=== PATIENT | male | born 1970 | race Caucasian/White ===

== ENCOUNTER 2018-05-25 16:51 | Inpatient (IN) | payer MEDICAID, OTHER ==
--- NOTE | 2018-05-25 17:31 | EDPHY ---
H & P Time Seen by Provider: 05/25/18 17:06 HPI/ROS: CHIEF COMPLAINT: "I just do not want to be here anymore" HISTORY OF PRESENT ILLNESS: Patient is a 48-year-old male who reports a history of schizophrenia and psych disease who presents emergency department with suicidal ideation and attempts to kill himself. The patient states that " I just don't want to be living anymore."Patient states that earlier this afternoon he just started to randomly take all of his various medications. He is not sure how many tablets of each medication he took. He denies any illicit drugs or alcohol. He denies any recent trauma. The patient was placed on a hold by PD. REVIEW OF SYSTEMS: 10 systems were reveiwed and are negative with the exception of the elements mentioned in the history of present illness. Past Medical/Surgical History: Includes schizophrenia, depression Social history: The patient denies drugs or alcohol Physical Exam: 36.9, 141/75, 84, 20, 97% on room air GENERAL: Mild acute distress, alert. HEENT: Eyes normal to inspection, normal pharynx, dry mucous membranes. NECK: Normal, supple. RESPIRATORY: Clear to auscultation bilaterally, no rales, rhonchi or wheezing. CVS: Regular rate and rhythm, no rubs, murmurs, or gallops. ABDOMEN: Soft, nontender, nondistended, no organomegaly. BACK: Normal to inspection, no CVA tenderness. SKIN: Normal color, no rash, warm, dry. No pallor. EXTREMITIES: No pedal edema, no calf tenderness, no Homans sign or cords, no joint swelling. NEURO/PSYCH: Alert and oriented to place, agitated, normal motor sensory exam. No obvious cranial nerve deficit. Intermittent tic (patient states this is baseline) Constitutional: Initial Vital Signs Temperature (C) 36.9 C 05/25/18 17:00 Heart Rate 84 05/25/18 17:00 Respiratory Rate 20 05/25/18 17:00 Blood Pressure 141/75 H 05/25/18 17:00 O2 Sat (%) 97 05/25/18 17:00 O2 Delivery Mode Room Air Allergies/Adverse Reactions: No Known Allergies Allergy (Unverified 05/25/18 16:58) Home Medications: Medication Instructions Recorded Amphetamine 05/25/18 Ingrezza 05/25/18 Neurontin 05/25/18 TRIHEXYPHENIDYL HCL 05/25/18 Wellbutrin 75mg (*) 05/25/18 Zofran 05/25/18 Zyprexa 05/25/18 Medical Decision Making ED Course/Re-evaluation: In the emergency department I met the patient on arrival. I took report from the paramedics. I discussed the plan with the patient. I answered all his questions. His medications were uploaded into the system. Please refer the nursing note. 1800: I discussed the case with the nursing staff. Please refer to their note. They entered in the number medications left his bottles. I rechecked the patient while here. He was stable. Patient was able to give a urine sample. Amphetamine and THC are non negative. Patient will be evaluated by Psychiatric Services. 2300: Patient is signed out to Dr. Beckham at change of shift. Patient is awaiting psychiatric evaluation. Differential Diagnosis: My differential includes but is not limited to depression, schizophrenia, psychosis, suicidal ideation, medication overdose, drug overdose, alcohol abuse - Data Points Laboratory Results: Laboratory Results 05/25/18 17:14 05/25/18 17:14 05/25/18 05/25/18 05/25/18 21:45 17:14 17:14 WBC 9.91 10^3/uL H 10^3/uL (3.80-9.50) RBC 4.60 10^6/uL 10^6/uL (4.40-6.38) Hgb 15.2 g/dL g/dL (13.7-17.5) Hct 40.8 % % (40.0-51.0) MCV 88.7 fL fL (81.5-99.8) MCH 33.0 pg pg (27.9-34.1) MCHC 37.3 g/dL H g/dL (32.4-36.7) RDW 11.9 % % (11.5-15.2) Plt Count 246 10^3/uL 10^3/uL (150-400) MPV 9.0 fL fL (8.7-11.7) Neut % (Auto) 78.7 % H % (39.3-74.2) Lymph % (Auto) 11.0 % L % (15.0-45.0) Terry % (Auto) 9.7 % % (4.5-13.0) Eos % (Auto) 0.0 % L % (0.6-7.6) Baso % (Auto) 0.1 % L % (0.3-1.7) Nucleat RBC Rel Count 0.0 % % (0.0-0.2) Absolute Neuts (auto) 7.80 10^3/uL H 10^3/uL (1.70-6.50) Absolute Lymphs (auto) 1.09 10^3/uL 10^3/uL (1.00-3.00) Absolute Monos (auto) 0.96 10^3/uL H 10^3/uL (0.30-0.80) Absolute Eos (auto) 0.00 10^3/uL L 10^3/uL (0.03-0.40) Absolute Basos (auto) 0.01 10^3/uL L 10^3/uL (0.02-0.10) Absolute Nucleated RBC 0.00 10^3/uL 10^3/uL (0-0.01) Immature Gran % 0.5 % % (0.0-1.1) Immature Gran # 0.05 10^3/uL 10^3/uL (0.00-0.10) Sodium 135 mEq/L mEq/L (135-145) Potassium 3.7 mEq/L mEq/L (3.5-5.2) Chloride 101 mEq/L mEq/L (97-110) Carbon Dioxide 26 mEq/l mEq/l (22-31) Anion Gap 8 mEq/L mEq/L (6-14) BUN 16 mg/dL mg/dL (7-23) Creatinine 0.9 mg/dL mg/dL (0.7-1.3) Estimated GFR > 60 Glucose 109 mg/dL H mg/dL (70-100) Calcium 9.5 mg/dL mg/dL (8.5-10.4) Salicylates < 1.0 mg/dL L mg/dL (2.0-20.0) Urine Opiates Screen NEGATIVE (NEGATIVE) Acetaminophen < 10 mcg/mL L mcg/mL (10-30) Urine Barbiturates NEGATIVE (NEGATIVE) Ur Phencyclidine Scrn NEGATIVE (NEGATIVE) Ur Amphetamine Screen NON-NEGATIVE H (NEGATIVE) U Benzodiazepines Scrn NEGATIVE (NEGATIVE) Urine Cocaine Screen NEGATIVE (NEGATIVE) U Marijuana (THC) Screen NON-NEGATIVE H (NEGATIVE) Ethyl Alcohol < 10 mg/dL mg/dL (0-10) Departure - Departure Clinical Impression: Suicidal ideation Condition: Good Referrals: NONE *PRIMARY CARE P,. [Primary Care Provider] - As per Instructions
[2018-05-25 18:56] LABS: PLATELET COUNT 246 10^3/uL (150-400)
--- NOTE | 2018-05-25 22:40 | CPEKG ---
Test Reason : OPEN Blood Pressure : / mmHG Vent. Rate : 083 BPM Atrial Rate : 083 BPM P-R Int : 155 ms QRS Dur : 095 ms QT Int : 415 ms P-R-T Axes : 071 087 048 degrees QTc Int : 488 ms Sinus rhythm Borderline prolonged QT interval Confirmed by Kathy Sherman ([id number]) on 05/25/2018 10:39:48 PM Referred By: Confirmed By:Kathy Sherman
[2018-05-26] MEDS ORDERED: LORazepam 1 MG TAB ONE (00:52)
[2018-05-26] MEDS ORDERED: NS 1,000 ML IV ONE ×2 (00:55→02:42)
[2018-05-26] MEDS ORDERED: LORazepam 1 MG TAB PO ONE (00:55)
[2018-05-26] MEDS ORDERED: OLANZapine 5 MG TAB PO ONE (02:01)
[2018-05-26] MEDS ORDERED: OLANZapine DISINTEGR 10 MG TAB ONE (02:02)
[2018-05-26] MEDS ORDERED: OLANZapine DISINTEGR 10 MG TAB PO ONE ×2 (02:03→09:07)
[2018-05-26] MEDS ORDERED: LORazepam 2 MG/ML INJ IVP ONE ×3 (02:50→03:41)
[2018-05-26] MEDS ORDERED: LORazepam 2 MG/ML INJ ONE (02:51)
[2018-05-26] MEDS ORDERED: HALOPERIDOL LACT 5 MG/ML INJ ONE (03:42)
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
--- NOTE | 2018-05-26 19:31 | ASMTLCPROG ---
Notes Note: Notes: Met [facility] PT to start assessment PT was unable to answer any of my questions and he was having constant tics,and he said he has a seizure disorder. When I asked PT why he was here, he repeated my question. PT was able to say that he grew up in [place], and he has lived in [place] for 30 years. After receiving this information from him, any question I asked he just repeated back to me. PT is not able to be evaluated at this time due to his inability to answer questions. Will see if PT is more responsive in the next few hours. Date Signed: 05/26/2018 07:31 PM Electronically Signed By:Candy Caldwell
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
--- NOTE | 2018-05-27 09:14 | ASMTTCLDSP ---
TLC Discharge Disposition Disposition: Answers: Admit Disposition Notes: Notes: In consultation with [facility] ED physician, Sandy Oreilly MD and on-call clinician, David Marie APN, both concurred that pt appears to meet 27-65 criteria requiring psychiatric hospitalization as pt appears to be at risk of harm to self/others/gravely disabled due to a mental illness condition. Pt was given the 3 prohibited belongings list while in the ED. Discharge Concerns/Recommendations: Notes: Pt to be admitted to Was patient given the Answers: Yes Inpatient Behavioral Health Prohibited Belongings List while in the ED? For inpatient David Marie admission, the following psychiatrist agreed to accept patient for admission to Behavioral Health ([facility]): Type of Hold: Answers: M1/72-hour Hold Hold initiated by: Answers: Police Date Signed: 05/27/2018 09:13 AM Electronically Signed By:Laureen Krishna
[2018-05-27] MEDS ORDERED: OLANZapine DISINTEGR 5 MG TAB PO ONE (09:53)
[2018-05-27] MEDS ORDERED: MAG HYDROX/AL HYDROX/SIMETH 30 ML UDCUP PO PRN (11:21)
[2018-05-27] MEDS ORDERED: OLANZapine DISINTEGR 10 MG TAB PO PRN (11:21)
[2018-05-27] MEDS ORDERED: MAGNESIUM HYDROXIDE 30 ML UDCUP PO PRN (11:21)
[2018-05-27] MEDS ORDERED: ACETAMINOPHEN 325 MG TAB PO PRN (11:21)
[2018-05-27] MEDS ORDERED: ONDANSETRON DISINTEGRATING 4 MG TAB PO PRN (11:25)
--- NOTE | 2018-05-27 11:46 | ASMTBHMTP ---
Master Treatment Plan Master Treatment Plan Answers: Depressed Mood with for: Suicidal Ideation Date: 05/27/2018 Diagnosis on Admission: Schizoaffective Disorder Expected length of stay: 3-5 days Reason for admission: Notes: Per Report: Pt is a 48 yo, unemployed, male with reported history of schizoaffective disorder depressed type; ADHD; and amphetamine use disorder, brought to [facility] ED by [facility] on M1 hold which noted: Respondent called [employer] dispatch to report that he took all of his pills and is very disoriented. Upon arrival, [facility] advised responding officer that respondent took 50 pills to kill himself. Respondent stated he is in daily pain and wanted to end it all. The pills were various prescription pills the bottles were collected and with respondent. In the ED, pt reported I should have cut myself to bleed out. A summary inventory of pt.s home medications noted: Wellbutrin HCL 300 mg XL tab 3 30 tablet bottles with varying amounts remaining Bottle 1 Rx date 01/20/18 30 tabs, sealed container 30 remaining. Bottle 2 Rx date 02/15/18 30 tabs 5 remaining. Bottle 3 Rx date 05/19/18 30 tabs sealed container 30 remaining. Gabapentin 600 mg tabs 1 120 tablet bottles. Bottle 1 Rx date 04/11/19 120 tabs 58 remaining. Bottle 2 Rx date 05/19/18 30 tabs sealed container 30 remaining. Ingrezza 80 mg 1 30 cap Bottle Rx date 02/15/18 8 caps remaining. Trihexyphenidyl 5 mg tabs Bottle 1 Rx date 11/29/17 60 tabs 42 remaining. Bottle 2 Rx date 05/19/18 60 tabs 60 remaining. Olanzapine 15 mg tabs Bottle 1 Rx date 11/01/17 30 tabs 11 remaining. Olanzapine 10 mg tabs Bottle 1 Rx date 04/13/18 30 tabs 2 remaining. Bottle 2 Rx date 05/19/18 30 tabs in unopened bottle. Amphetamine salts 20 mg ER 60 tabs Rx date 05/19/18 43 remaining. Zofran 4 mg tab Rx date 01/17/18 120 tabs 99 remaining. Attempted to conduct MH interview with pt at 1110 hrs. It was noted that pt had been given another dose of Zyprexa Zydis 10 mg po at 0911 hrs. ED nurse conveyed that when staff is in pt.s room with him, he is able to reduce his "writhing and moaning" behavior, but when no one is in the room with pt, he resumes this behavior. Introduced self to pt to begin MH evaluation. Pt was not communicating, appeared somewhat sedated by recent Zyprexa, and continued to "writhe back and forth", moan, and bringing his knees to his chest while lying on his back. Pt unable to provide verbal description as to why he was writhing back and forth with his knees to his chest and moaning. [facility] records reflect pt having chronic auditory hallucinations since age 29. Pt does not appear to be a reliable historian at this time. Informed ED nurse, Antonella that [facility] will attempt to evaluate pt again in a few hours. [facility] also attempted to interview pt. evening of 05/26/18 with no success so pt. remained in ED overnight. Pt is an open client with [facility] for the past year, under the care of psychiatrist Frandy King MD and recently Dr. Rosas. Pt last met with Dr. King on 05/02/18. Patient's stated presenting problems: Notes: "I tried to complete suicide." Patient's goals for treatment: Notes: "I don't know yet." Patient's strengths: Notes: "none" Identify supports outside of hospital: Notes: "None at the moment." Discharge criteria: Notes: Suicidal Ideation will resolve and patient will have a plan to safely manage recurrent suicidal ideation.* Initial disposition plan/considerations: Notes: Hopefully, go back to my apartment. Master Treatment Plan Required Signatures Psychiatrist signature: Answers: Psychiatrist: RN on-shift signature: Answers: RN: Patient signature: Answers: Patient: Date Signed: 05/27/2018 11:46 AM Electronically Signed By:Maciel Amador
--- NOTE | 2018-05-27 13:00 | PDMN ---
Medical Necessity Medical necessity: Pt meets IP criteria as of per and [facility] B-104-IP ( Schizophrenia Spectrum Disorder, Adult, IP care); est los > 2 mn for ongoing tx and management of suicidal ideation in the setting of schizoaffective disorder on M1 hold.
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
[2018-05-27] MEDS: GABAPENTIN 400 MG CAP PO SCH ×2 (15:15→20:17)
[2018-05-27] MEDS: TRIHEXYPHENIDYL HCL 5 MG TAB PO SCH (16:51)
[2018-05-27] MEDS ORDERED: OLANZapine 10 MG TAB PO SCH (21:00)
[2018-05-28 06:44] VITALS: BP 119/87
[2018-05-28] MEDS: TRIHEXYPHENIDYL HCL 5 MG TAB PO SCH (07:41)
[2018-05-28] MEDS: GABAPENTIN 400 MG CAP PO SCH ×2 (07:41→16:17)
[2018-05-28] MEDS ORDERED: BACITRACIN OINTMENT 1 PACKET TP ONE (10:53)
--- NOTE | 2018-05-28 15:20 | ASMTBHDC ---
Notes Note: Notes: Pt. stated his rent and cable is due. Pt. stated "think I lost my job". Pt. reports "slept pretty good". Pt. reports eating well and attending groups. Pt. reports not getting all of his medications, adding he is not getting his Adderall, stating "helps calm me down". Pt. stated "I'm really stressed out" adding he is struggling to focus in groups. Pt. stated P has been a helpful resource for him. Pt. denied SI, HI, AVH and paranoia. Pt. provided David LAM ([phone], cell [phone]) and asked CC to call father to let him know the pt is in the hospital. Pt. stated he is able to schedule his follow up appointments if he discharges this weekend. Pt. presents as alert, fidgeting, fair eye contact, somewhat anxious, polite and cooperative. Staff report pt. sleeping 12 hours and being medication compliant. Date Signed: 05/28/2018 03:19 PM Electronically Signed By:Melanie Walker
--- NOTE | 2018-05-28 18:09 | BDS ---
REASON FOR ADMISSION: Patient is a 48-year-old man who presented to the ED stating, "I just don't wa nt to live anymore." HISTORY: Patient reported that earlier in the afternoon, he had taken more than the prescribed amoun t of various medications. The patient was placed on a 72-hour hold. He told the [facility] cotton acreage measurer, "I s hould have cut myself to bleed out. I remember taking 15 or so of my Wellbutrin. I can't remember w hat else I took. I took a bunch of each." Patient himself called the [facility] and reported he had taken an overdose of his pills and was diso riented when [facility] arrived, they transported him to the [facility] ED. Patient reported that he wanted to end it all. ADMITTING DIAGNOSES: As follows: 1. Schizophrenia. 2. Cannabis-use disorder, severe. 3. Rule out amphetamine-use disorder. PHYSICAL EXAMINATION: He was seen in the emergency department. His physical exam in the ED: VITAL SIGNS: BP was slightly elevated at 141/75, pulse was 84, respirations 20, 97% on room air. GE NERAL: There were no acute abnormal physical findings on exam other than the patient had intermitten t tics in his face and upper extremities. The patient stated that those were baseline. He has a tic disorder for which he is prescribed Artane. LABS: Were done in the ED on 05/25/2018. His white cell count was 9.91, hemoglobin 15.2, hematocrit 40.8, platelet count 246. Sodium was 135, potassium 3.7, chloride 101, BUN 16, creatinine 0.9, gluc ose 109. Hemoglobin A1c 5.0, calcium was 9.5, total bilirubin 1.1, AST 39, ALT 40, alkaline phosphat ase 92, total protein 6.3, cholesterol 210, triglycerides 100. Urine drug screen was positive for am phetamines and for marijuana. Negative for all other drugs of abuse. HOSPITAL COURSE: The patient was admitted by the psychiatric Nurse Practitioner, David Lal, who r estarted the patient on the patient's current outpatient medications, except that he did not restart the Wellbutrin because of patient's recent overdose. He was given gabapentin 800 mg p.o. three times daily, olanzapine 10 mg p.o. at bedtime, Zofran 4 mg p.o. q.4 hours p.r.n., and Artane 5 mg p.o. twi ce daily. On the unit, the patient was not agitated or combative. He did not show any signs of aggression. He denied any psychotic symptoms including denying auditory and visual hallucinations, paranoid delusio ns, ideas of reference, and bizarre thoughts. He did not show any signs or symptoms of [place]. He di d not have pressured speech, racing thoughts, grandiose delusions, elevated or elated mood, increased goal-directed activity, decreased need for sleep. He denied feeling sad, helpless, hopeless, worthl ess, anxious, or panicking. He denied any thoughts, plans, or intents to hurt himself or anyone else . He did not have any residual effects from his Wellbutrin overdose. He was calm and appropriate on the unit. He participated in group activities. He did have a noticeable tic disorder, which he say s has been diagnosed as a movement disorder, not tardive dyskinesia. The patient states that he thomas myra jinny has any thoughts of suicide. He says "I don't want to ." He also told this MD on day of gianni, "I was depressed, I felt very alone." He says that he had been in his apartment over the and that several of his friends in the apartment complex, which are his primary social support , had been gone for the day, and some had been out of town. He had also not been attending his 12-st ep groups recently, and he says that he was just feeling very isolated and lonely and that that is wh at gave rise to the impulse to overdose on his medications. He stated that he no longer has those th oughts. The patient was future oriented. Worked on a safety plan and listed several coping methods that he would use in order to maintain social connections and in order to reach out to people if he w as starting to feel distressed. He says that he plans to restart his 12-step groups which he had pre viously been attending twice a week. He has a sponsor there. He also says that he was going to use his social supports in his apartment complex. The care specialist also spoke with the patient's fat her on day of discharge. Father stated that he has noticed that the patient has been more worried an d anxious lately. Father told care specialist that the patient has been focused on a recent rent in [place] and wondering if he can continue to afford to live in his same apartment. He states that the patient is coming up on his 2-year anniversary of his sobriety, although the patient's urine drug scr een was positive for amphetamines and for marijuana. He is prescribed amphetamines by Dr. King at [facility]. The patient denied use of any other drugs other than marijuana. Father says that the patient does get a lot of social support from his 12-step groups and that when he goes to [facility] 12-step meetings and stays in regular contact with his sponsor, that he usually does much better. His mood is usually better. Father states that he had no concerns about the patient's safety. He sa id that he talked to the patient recently and that the patient seems to be doing better since he was hospitalized and father says that the patient has not expressed any suicidal thoughts during any of t heir conversations. The patient was discharged from the hospital when his mental health hold . He was not willing to stay in the hospital any longer. advised the patient that if he stayed until Wednesday that the care specialist and the treatment team would be able to reach out to [facility] and [facility], which he does not currently have in place. The patient said "I can do that on my own," and requ ested to be discharged on Wednesday. DISCHARGE MEDICATIONS: The patient was not given any prescriptions when he left the hospital because he stated that he has full bottles of prescriptions at home. The patient is taking Adderall XR 20 m g p.o. q. 8 a.m. and 2 p.m., Wellbutrin XL 300 mg p.o. daily, gabapentin 1200 mg p.o. twice daily, ol anzapine 10 mg p.o. at bedtime, and trihexyphenidyl 5 mg p.o. twice daily. DISCHARGE DIAGNOSES: 1. Substance-induced mood disorder. 2. Schizophrenia by history. No evidence of psychosis during this hospitalization. 3. Cannabis-use disorder, severe. 4. Amphetamine-use disorder. Stimulant type unknown severity. 5. Precarious housing. 6. Risk of losing employment. 7. Lack of social support. 8. Question relapse from sobriety. Patient claims that he is not using drugs, but does not consider cannabis to be an abusable drug. CONDITION AT DISCHARGE: Patient was stable. He was in good spirits. He reports that his mood is "g ood." He denies any thoughts, plans, or intents, to hurt himself or anyone else. ATTITUDE AT DISCHARGE: Patient is future oriented. He wants to get home to pay his cable bill, make sure that his May rent gets paid. He is very concerned about losing his apartment and he wants to get back to work so he does not lose his job. FOLLOWUP CARE: The patient does not have any followup appointments currently in place with his [facility] dina mcnulty. He saw Dr. King on 05/02/2018, and he does not know when his next appointment is with his telephonic case manager. The care specialist was unable to make followup appointments for him because the pat ient insisted upon discharging over the weekend. Patient states that he will make his own followup a ppointments on Wednesday morning. Patient also states that he will start attending 12-step meetings and contact his sponsor once he gets out of the hospital. /[id number]/MODL
== END 2018-05-28 16:45 | disposition home or self-care (01) | DRG 885 ==
LOC: EDUNIT# → BBEH 05-27 10:36 → OBSVTOIN 05-27 11:24
PROVIDERS: ADMIT Registered Nurse; ATTEND Registered Nurse
DX: F20.9 Schizophrenia, unspecified (principal); F12.259 Cannabis dependence with psychotic disorder, unspecified; T43.292A Poisoning by other antidepressants, intentional self-harm, initial encounter; Z91.5 Personal history of self-harm
CPT/HCPCS: 80305; 96374; G0480; J1630; J2060

== ENCOUNTER 2018-07-23 02:07 | Emergency (ER) | payer MEDICAID | END 2018-07-23 02:33 ==

== ENCOUNTER 2018-08-21 10:24 | Emergency (ER) | payer OTHER, MEDICAID ==
[2018-08-21 10:30] VITALS: BP 129/73
[2018-08-21] MEDS ORDERED: TDAP ADULT 0.5 ML INJ (BOOSTRIX) IM ONE (10:34)
--- NOTE | 2018-08-21 10:39 | EDPHY ---
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 He reports that the area started to bleed and he applied direct pressure and the bleeding stopped. He wash the area with soap and water and applied a Band-Aid. Over the next 2 days he noticed some redness and swelling around the laceration area. Denies any decreased range of motion, warmth, discharge. He does report pain in the area. Unsure of tetanus status. Modifying Factors: Local wound care Comment: ROS: A comprehensive 10 system review of systems is otherwise negative aside from elements mentioned in the history of present illness. MEDICAL/SURGICAL/SOCIAL HISTORY: Medical history: Depression, schizophrenia, attention deficit hyperactivity disorder Surgical history: Denies Social history: Current every day smoker. History of IV drug use. methamphetamine abuse. CONSTITUTIONAL: Well-developed, well-nourished, middle-aged white male, awake and alert, no obvious distress HEENT: Atraumatic and normocephalic, PERRL, EOMI. Nares patent; no rhinorrhea; no nasal mucosal edema. Tympanic membranes clear. Oropharynx clear, no exudate and moist pink mucosa. Airway patent. No lymphadenopathy. No meningismus. Cardiovascular: Normal S1/S2, regular rate, regular rhythm, without murmur rub or gallop. PULMONARY/CHEST: Symmetrical and nontender. Clear to auscultation bilaterally. Good air movement. No accessory muscle usage. ABDOMEN: Soft, nondistended, nontender, no rebound, no guarding, no peritoneal signs, no masses or organomegaly. No CVAT. EXTREMITIES: 2/2 pulses, strength 5/5, left thumb shows v-shaped laceration distal to the DI P joint with scabbing and minimal surrounding induration. No fluctuance. No discharge. DIP and MCP have full range of motion of flexion and extension. no clubbing, no cyanosis or edema. NEUROLOGICAL: no focal neuro deficits. GCS 15. SKIN: Warm and dry, no erythema. no rash. Good capillary refill. Source: Patient Exam Limitations: No limitations - Personal History Current Tetanus Diphtheria and Acellular Pertussis (TDAP): Yes - Medical/Surgical History Hx Asthma: No Hx Chronic Respiratory Disease: No Hx Diabetes: No Hx Cardiac Disease: No Hx Renal Disease: No Hx Cirrhosis: No Hx Alcoholism: No Hx HIV/AIDS: No Hx Splenectomy or Spleen Trauma: No Other PMH: depression, schizophrenia, adhd - Social History Smoking Status: Current every day smoker Constitutional: Initial Vital Signs Temperature (C) 36.7 C 08/21/18 10:28 Heart Rate 76 08/21/18 10:28 Respiratory Rate 18 08/21/18 10:28 Blood Pressure 129/73 H 08/21/18 10:28 O2 Sat (%) 97 08/21/18 10:28 O2 Delivery Mode Room Air Allergies/Adverse Reactions: No Known Allergies Allergy (Verified 08/21/18 10:27) Home Medications: Medication Instructions Recorded Bupropion HCl [Wellbutrin Xl] 300 mg PO DAILY 05/25/18 Gabapentin [Neurontin] 1,200 mg PO BID 05/25/18 OLANZapine [Zyprexa] 10 mg PO HS 05/25/18 Ondansetron HCl [Zofran] 4 - 8 mg PO Q8 PRN 05/25/18 Trihexyphenidyl HCl 5 mg PO BID 05/25/18 Amphetamine Salts Er 20mg Cap 20 mg PO BID@08,14 05/27/18 Adderall 20 mg (*) 07/23/18 Valium 5 MG (*) 07/23/18 Cephalexin [Keflex (*)] 500 mg PO QID #28 cap 08/21/18 Medical Decision Making Procedures: Procedure: Splint placement. A right cage finger splint was applied. After application of the splint I returned and re-examined the patient. The splint was adequately immobilizing the joint and distal to the splint the patient's circulation and sensation was intact. ED Course/Re-evaluation: Tetanus booster given. Laceration shows mild signs of surrounding induration; early mild infection Cleaned thoroughly and irrigated; bacitracin and clean sterile dressing applied Placed in cage finger splint for immobilization for the next 2-3 days Given a prescription for Keflex Sutures are not indicated at this time. Verbal and written wound care instructions provided. No signs of neurovascular compromise/tenting of skin/compartment syndrome/ extremities and joints examined above and below area of concern and are neurovascularly intact/tenosynovitis/abscess. This patient was seen under the supervision of my primary supervising physician. I evaluated care for this patient independently. Differential Diagnosis: Differential diagnosis includes but is not limited to laceration, nerve injury, tendon injury, cellulitis, abscess, tenosynovitis Departure - Departure Disposition: Home, Routine, Self-Care Clinical Impression: Laceration of left thumb with infection Qualifiers: Encounter type: initial encounter Qualified Code(s): S61.012A - Laceration without foreign body of left thumb without damage to nail, initial encounter; L08.9 - Local infection of the skin and subcutaneous tissue, unspecified; L08.9 - Local infection of the skin and subcutaneous tissue, unspecified Condition: Good Instructions: Laceration Without Closure (ED) Additional Instructions: Keep the splint dressing dry and in place for 2-3 days. After 2-3 days remove the splint and dressing. Wash the site daily with mild soap and water; pat dry; apply topical antibiotic ointment and clean sterile dressing daily until fully healed.. Take Tylenol 650 mg every 4 hours and/or Ibuprofen 600 mg every 8 hours with food as needed for pain. Take antibiotic as directed. Do not skip a dose. Return to the ER immediately if you experience red streaks, have fevers/chills, flu like symptoms, limited range of motion, or any other symptoms that concern you. Referrals: Min Strong MD [Medical Doctor] - Follow Up Only If Needed Prescriptions: Cephalexin [Keflex (*)] 500 mg PO QID #28 cap
== END 2018-08-21 11:00 | disposition home or self-care (01) ==
DX: S61.012A Laceration without foreign body of left thumb without damage to nail, initial encounter (principal); L08.9 Local infection of the skin and subcutaneous tissue, unspecified; F32.9 Major depressive disorder, single episode, unspecified; F20.9 Schizophrenia, unspecified; W26.0XXA Contact with knife, initial encounter; Y93.G1 Activity, food preparation and clean up
CPT/HCPCS: L3925